=== PATIENT | male | born 1955 | race Caucasian/White ===

== ENCOUNTER → 2018-08-12 | Day surgery (SDC) | payer OTHER | LOC: MSO 09:33 | DX: Z12.11 Encounter for screening for malignant neoplasm of colon (principal); K57.32 Diverticulitis of large intestine without perforation or abscess without bleeding; I10 Essential (primary) hypertension; E11.9 Type 2 diabetes mellitus without complications; Z79.899 Other long term (current) drug therapy; Z79.84 Long term (current) use of oral hypoglycemic drugs | CPT/HCPCS: 00812; J2704; J7030 ==

== ENCOUNTER → 2021-05-30 | Outpatient (CLI) | payer OTHER ==
[~2021-05-30] MED LIST: ATORVASTATIN CA20 MG PO; GLUCOPHAGE PO; LISINOPRIL10 MG PO; TESTOSTERO200 MG/1 M IM
== END ==
LOC: RAD 10:39
DX: M79.662 Pain in left lower leg (principal)

== ENCOUNTER → 2021-06-02 | Outpatient (CLI) | payer OTHER | LOC: CARDREHAB 09:47 | DX: R06.81 Apnea, not elsewhere classified (principal); R40.0 Somnolence; R06.83 Snoring | CPT/HCPCS: G0399 ==

== ENCOUNTER → 2024-05-26 | Outpatient (CLI) | payer MEDICARE ==
[2024-05-26 11:08] LABS: BASO # 0.03 K/mm3 (0.02-0.10); EOS # 0.49 K/mm3 (0.04-0.40); EOS % 6.4 % (0.0-4.0); HEMATOCRIT 46.8 % (42.0-52.0); LYMPH# 1.95 K/mm3 (1.50-4.00); MEAN CELL VOLUME 76 fl (78-100); MEAN CORPUSCULAR HEMOGLOBIN 24 pg (27-31); MEAN CORPUSCULAR HGB CONC 32 g/dL (33-37); MEAN PLATELET VOLUME 9.2 fl (7.4-10.4); MONO # 0.52 K/mm3 (0.20-0.80); NEU # 4.62 K/mm3 (1.40-6.50); PLATELET COUNT 235 K/mm3 (130-400); RED BLOOD COUNT 6.18 M/mm3 (4.20-5.60); RED CELL DISTRIBUTION WIDTH 15.3 % (11.5-14.5); WHITE BLOOD COUNT 7.6 K/mm3 (4.8-10.8)
[2024-05-26 11:17] LABS: ALBUMIN 4.4 g/dL (3.4-4.8)
[2024-05-26 11:18] LABS: CALCIUM 9.7 mg/dL (8.3-10.5)
[2024-05-26 11:20] LABS: TOTAL PROTEIN 7.6 g/dL (6.2-8.1)
[2024-05-26 11:21] LABS: TOTAL BILIRUBIN 1.7 mg/dL (0.2-1.2)
[2024-05-26 11:26] LABS: MAGNESIUM 1.87 mg/dL (1.60-2.60)
== END ==
LOC: LAB 10:48
PROVIDERS: Family Medicine
DX: Z12.5 Encounter for screening for malignant neoplasm of prostate (principal); M25.512 Pain in left shoulder; M25.511 Pain in right shoulder; I10 Essential (primary) hypertension; E29.1 Testicular hypofunction; E11.9 Type 2 diabetes mellitus without complications